=== PATIENT | female | born 1985 | race Caucasian/White ===

== ENCOUNTER 2020-03-21 10:42 | Outpatient (CLI) | payer OTHER, SELFPAY ==
[2020-03-21 12:16] LABS: Basophils Absolute Auto 0.1 K/mm3 (0.0-0.1); Basophils Percent Auto 0.4 % (0.2-1.2); Eosinophils Absolute Auto 0.2 K/mm3 (0-0.3); Eosinophils Percent Auto 1.6 % (0-4.4); Hematocrit 44.5 % (37.0-47.0); Hemoglobin 14.5 g/dL (12.0-15.0); Immature Granulocyte Absolute 0.04 K/mm3 (0.00-0.031); Immature Granulocyte Percent A 0.3 % (0-0.5); Lymphocytes Absolute Auto 4.03 K/mm3 (0.9-3.2); Lymphocytes Percent Auto 32.7 % (18.3-44.2); Mean Corpuscular HGB Conc 32.6 g/dl (32-36); Mean Corpuscular Volume 91.9 fl (80-100); Mean Platelet Volume 8.8 fl (7.4-10.4); Monocytes Absolute Auto 0.7 K/mm3 (0.1-0.6); Monocytes Percent Auto 5.5 % (2.6-8.5); Neutrophils Absolute Auto 7.3 K/mm3 (1.3-6.7); Neutrophils Percent Auto 59.5 % (45.5-73.1); Platelet Count Result 360 k/mm3 (150-375); Red Blood Count 4.84 M/mm3 (4.2-5.4); Red Cell Distribution Width 12.9 % (11.5-14.5); White Blood Count 12.3 K/mm3 (4.5-10.0)
[2020-03-21 12:50] LABS: Alanine Aminotransferase 21 U/L (4-35); Albumin Level 4.1 g/dL (3.5-5.1); Alkaline Phosphatase 129 U/L (38-126); Anion Gap 7 mmol/L (8-16); Aspartate Amino Transferase 23 U/L (14-36); Bilirubin,Total 0.4 mg/dL (0.2-1.3); Blood Urea Nitrogen 14 mg/dL (7-17); Calcium 9.2 mg/dL (8.4-10.2); Carbon Dioxide 30 mmol/L (22-30); Chloride 104 mmol/L (98-107); Cholesterol 158 mg/dL (0-200); Estimated Glomerular Filt Rate > 60; Glucose 100 mg/dL (65-105); HDL Direct 56 mg/dL; Potassium 4.6 mmol/L (3.4-5.0); Sodium 141 mmol/L (137-145); Triglycerides 169 mg/dL (<150)
[2020-03-21 12:59] LABS: Thyroid Stimulating Hormone 0.942 uIU/mL (0.465-4.680)
[2020-03-21 13:01] LABS: LDL Cholesterol Direct 87 mg/dL
[2020-03-21 13:27] LABS: Vitamin D 25 Hydroxy 37.2 ng/mL
== END 2020-03-21 10:43 | disposition home or self-care (01) ==
PROVIDERS: PCP Internal Medicine; Visit Provider Clinical Nurse Specialist
DX: Z13.228 Encounter for screening for other metabolic disorders (principal); Z13.220 Encounter for screening for lipoid disorders; E55.9 Vitamin D deficiency, unspecified; R23.2 Flushing
CPT/HCPCS: 36415; 80053; 80061; 82306; 84443; 85025

== ENCOUNTER 2020-06-01 09:25 | Outpatient (CLI) | payer OTHER, SELFPAY ==
--- NOTE | 2020-06-01 11:30 | NEURO_ITS ---
Impression: # Complains of nocturnal paresthesia of hands. # Bilateral moderate Carpal Tunnel Syndrome. # No ulnar neuropathy. # Normal needle/EMG exam. Nerve Conduction Studies Anti Sensory Summary Table Stim Site NR Peak (ms) P-T Amp (?V) Site1 Site2 Delta-P (ms) Dist (cm) Shawn (m/s) Left Median Anti Sensory (2-3nd Digit) Wrist 4.8 10.9 Wrist 2-3nd Digit 4.8 14.0 29 Wrist 6.5 3.9 Wrist 2-3nd Digit 4.8 14.0 29 Right Median Anti Sensory (2-3nd Digit) Wrist 4.7 68.1 Wrist 2-3nd Digit 4.7 14.0 30 Wrist 4.5 37.9 Wrist 2-3nd Digit 4.7 14.0 30 Left Radial Anti Sensory (Base 1st Digit) Wrist 2.3 19.6 Wrist Base 1st Digit 2.3 0.0 Right Radial Anti Sensory (Base 1st Digit) Wrist 2.2 21.3 Wrist Base 1st Digit 2.2 0.0 Left Ulnar Anti Sensory (5th Digit) Wrist 3.0 92.8 Wrist 5th Digit 3.0 14.0 47 Right Ulnar Anti Sensory (5th Digit) Wrist 2.4 87.8 Wrist 5th Digit 2.4 14.0 58 Motor Summary Table Stim Site NR Onset (ms) O-P Amp (mV) Site1 Site2 Delta-0 (ms) Dist (cm) Shawn (m/s) Left Median Motor (Abd Poll Brev) Wrist 5.3 2.5 Elbow Wrist 5.1 29.0 57 Elbow 10.4 2.3 Right Median Motor (Abd Poll Brev) Wrist 5.0 4.7 Elbow Wrist 4.5 26.0 58 Elbow 9.5 5.0 Left Ulnar Motor (Abd Dig Minimi) Wrist 2.7 7.9 A Elbow Wrist 5.2 31.0 60 A Elbow 7.9 6.8 Right Ulnar Motor (Abd Dig Minimi) Wrist 2.6 5.2 A Elbow Wrist 4.9 31.0 63 A Elbow 7.5 4.3 F Wave Studies NR F-Lat (ms) L-R F-Lat (ms) Left Median (Mrkrs) (Abd Poll Brev) 29.42 0.00 Right Median (Mrkrs) (Abd Poll Brev) 29.42 0.00 Left Ulnar (Mrkrs) (Abd Dig Min) 29.39 0.17 Right Ulnar (Mrkrs) (Abd Dig Min) 29.23 0.17 EMG Side Muscle Nerve Root Ins Act Fibs Amp Dur Recrt Comment Right 1stDorInt Ulnar C8-T1 Nml Nml Nml Nml Nml Right Ext Indicis Radial (Post Int) C7-8 Nml Nml Nml Nml Nml Right Ext Digitorum Radial (Post Int) C7-8 Nml Nml Nml Nml Nml Right BrachioRad Radial C5-6 Nml Nml Nml Nml Nml Right PronatorTeres Median C6-7 Nml Nml Nml Nml Nml Right Abd Poll Brev Median C8-T1 Nml Nml Nml Nml Nml Left 1stDorInt Ulnar C8-T1 Nml Nml Nml Nml Nml Left Ext Indicis Radial (Post Int) C7-8 Nml Nml Nml Nml Nml Left Ext Digitorum Radial (Post Int) C7-8 Nml Nml Nml Nml Nml Left BrachioRad Radial C5-6 Nml Nml Nml Nml Nml Left PronatorTeres Median C6-7 Nml Nml Nml Nml Nml Left Abd Poll Brev Median C8-T1 Nml Nml Nml Nml Nml MTDD
== END 2020-06-01 09:26 | disposition home or self-care (01) ==
PROVIDERS: PCP Internal Medicine; Visit Provider Clinical Nurse Specialist
DX: R20.2 Paresthesia of skin (principal); G56.03 Carpal tunnel syndrome, bilateral upper limbs
CPT/HCPCS: 95886; 95911

== ENCOUNTER 2020-06-24 17:38 | Outpatient (CLI) | payer OTHER, SELFPAY ==
[2020-06-24 17:50] LABS: Basophils Absolute Auto 0.1 K/mm3 (0.0-0.1); Basophils Percent Auto 0.4 % (0.2-1.2); Eosinophils Absolute Auto 0.3 K/mm3 (0-0.3); Eosinophils Percent Auto 2.2 % (0-4.4); Hematocrit 40.9 % (37.0-47.0); Hemoglobin 13.1 g/dL (12.0-15.0); Immature Granulocyte Absolute 0.03 K/mm3 (0.00-0.031); Immature Granulocyte Percent A 0.2 % (0-0.5); Lymphocytes Absolute Auto 4.73 K/mm3 (0.9-3.2); Lymphocytes Percent Auto 39.4 % (18.3-44.2); Mean Corpuscular Hemoglobin 29.9 pg (26-34); Mean Corpuscular Volume 93.4 fl (80-100); Mean Platelet Volume 8.6 fl (7.4-10.4); Monocytes Absolute Auto 0.9 K/mm3 (0.1-0.6); Monocytes Percent Auto 7.1 % (2.6-8.5); Neutrophils Absolute Auto 6.1 K/mm3 (1.3-6.7); Neutrophils Percent Auto 50.7 % (45.5-73.1); Platelet Count Result 329 k/mm3 (150-375); Red Blood Count 4.38 M/mm3 (4.2-5.4); Red Cell Distribution Width 13.7 % (11.5-14.5)
== END 2020-06-24 17:39 | disposition home or self-care (01) ==
LOC: ANHLAB 17:40
PROVIDERS: PCP Clinical Nurse Specialist; Visit Provider Clinical Nurse Specialist
DX: D72.829 Elevated white blood cell count, unspecified (principal)
CPT/HCPCS: 36415; 85025

== ENCOUNTER 2020-07-02 13:32 | Outpatient (CLI) | payer OTHER, SELFPAY ==
--- NOTE | ~2020-07-02 | MR_ITS ---
EXAMINATION: MR brain/brain stem wo/w con DATE: 07/02/2020 18:30 CDT INDICATION: Migraine headaches TECHNIQUE: Magnetic resonance imaging (MRI) of the brain and brainstem was performed without and with 20 cc MultiHance intravenous contrast. Sequences included sagittal and axial T1-weighted SE, axial d iffusion-weighted FS SE, axial T2*-weighted GRE, axial T2-weighted FLAIR Propeller, and axial T2-weig hted Propeller. Apparent diffusion coefficient (ADC) maps were created. COMPARISON: No prior studies for comparison. FINDINGS: The brain volume and ventricular system are within normal limits. The brain parenchymal si gnal intensity pattern and stone/white matter is normal and there is no evidence of hemorrhage, space occupying masses or infarctions. The flow signal voids of the major arterial structures about the [place] and within the jose r dural venous sinuses appear grossly unremarkable and patent. The seventh and eighth cranial nerve complexes are normal. The mid sagittal image demonstrates a normal craniovertebral junction and senia us callosum. The paranasal sinuses are grossly unremarkable. No abnormal contrast enhancement was appreciated. IMPRESSION: 1: No acute intracranial abnormality. Reviewed, dictated and finalized at location A.
[2020-07-02 14:43] LABS: Estimated Glomerular Filt Rate > 60
== END 2020-07-02 13:33 | disposition home or self-care (01) ==
PROVIDERS: PCP Internal Medicine; Visit Provider Clinical Nurse Specialist
DX: G43.909 Migraine, unspecified, not intractable, without status migrainosus (principal)
CPT/HCPCS: 70553; A9577

== ENCOUNTER 2020-10-10 11:06 | Outpatient (CLI) | payer OTHER, SELFPAY ==
[2020-10-10 11:56] LABS: Basophils Absolute Auto 0.1 K/mm3 (0.0-0.1); Basophils Percent Auto 0.5 % (0.2-1.2); Eosinophils Absolute Auto 0.2 K/mm3 (0-0.3); Eosinophils Percent Auto 1.7 % (0-4.4); Hematocrit 44.7 % (37.0-47.0); Hemoglobin 14.5 g/dL (12.0-15.0); Immature Granulocyte Absolute 0.04 K/mm3 (0.00-0.031); Immature Granulocyte Percent A 0.3 % (0-0.5); Lymphocytes Absolute Auto 4.08 K/mm3 (0.9-3.2); Lymphocytes Percent Auto 33.8 % (18.3-44.2); Mean Corpuscular HGB Conc 32.4 g/dl (32-36); Mean Corpuscular Hemoglobin 30.7 pg (26-34); Mean Corpuscular Volume 94.7 fl (80-100); Mean Platelet Volume 8.8 fl (7.4-10.4); Monocytes Absolute Auto 0.7 K/mm3 (0.1-0.6); Monocytes Percent Auto 5.7 % (2.6-8.5); Platelet Count Result 377 k/mm3 (150-375); Red Blood Count 4.72 M/mm3 (4.2-5.4); Red Cell Distribution Width 12.9 % (11.5-14.5); White Blood Count 12.1 K/mm3 (4.5-10.0)
[2020-10-10 15:15] LABS: Vitamin D 25 Hydroxy 42.1 ng/mL
== END 2020-10-10 11:07 | disposition home or self-care (01) ==
PROVIDERS: PCP Internal Medicine; Visit Provider Clinical Nurse Specialist
DX: D72.829 Elevated white blood cell count, unspecified (principal); E55.9 Vitamin D deficiency, unspecified
CPT/HCPCS: 36415; 82306; 85025

== ENCOUNTER 2020-10-10 11:12 | Outpatient (CLI) | payer OTHER, SELFPAY ==
[2020-10-10 12:48] LABS: HIV 1/2 Ab P24 Ag Result Negative (Negative)
[2020-10-10 16:15] LABS: Hepatitis B Surface Antigen Negative (Negative)
[2020-10-10 16:32] LABS: Hepatitis C Virus Antibody Negative (Negative)
== END 2020-10-10 11:13 | disposition home or self-care (01) ==
PROVIDERS: PCP Internal Medicine; Visit Provider Clinical Nurse Specialist
DX: T14.8XXA Other injury of unspecified body region, initial encounter (principal); W46.1XXA Contact with contaminated hypodermic needle, initial encounter
CPT/HCPCS: 36415; 86703; 86803; 87340; G0432

== ENCOUNTER 2021-01-16 10:27 | Outpatient (CLI) | payer OTHER, SELFPAY ==
[2021-01-16 14:36] LABS: Valproic Acid 17.9 ug/mL (50-120)
== END 2021-01-16 10:28 | disposition home or self-care (01) ==
PROVIDERS: Anesthesiology; PCP Internal Medicine; Visit Provider Plastic Surgery
DX: G43.909 Migraine, unspecified, not intractable, without status migrainosus (principal)
CPT/HCPCS: 36415; 80164

== ENCOUNTER 2021-01-18 02:15 | Day surgery (SDC) | payer OTHER, SELFPAY ==
[2021-01-11 15:21] VITALS: BMI 50.1
--- NOTE | 2021-01-11 15:31 | PC.NURSE ---
Report to the Outpatient Waiting Room, entrance under the green pavilion located off [facility], at 6:00 on date 01/18/21. OR Time: 7:30. - You and your visitor will be asked a series of questions to screen for COVID 19 for your protection. - A mask is required within the hospital. - Only one visitor is allowed at this time. Patient visitors will be guided where to wait when not with patient. Preoperative COVID Testing Requirements: No COVID Test needed if: (proof is required; if not received patient will have Rapid Test prior to entry) - Patient has received COVID Vaccine at least 14 days prior to procedure date or - Patient has positive COVID test result within last 90 days of surgery date. COVID Test needed if above criteria is not met If not COVID vaccinated a COVID test must be conducted within 72 hours of surgery and patient is asked to isolate self from time of testing until procedure. You will go to the [facility] for your COVID testing. The [facility] is located at the corner of [address] [facility]. You will only be called if COVID results are positive and your surgeon may reschedule your elective surgery date. Patients may have clear liquids (water, carbonated beverages, clear teas, apple juice) until 3 hours prior to surgery with a maximum of 20 ounces. - No food from midnight until time of surgery - Infants may have breast milk until 4 hours before surgery, formula 6 hours prior to surgery. - Children will be allowed to drink immediately following surgery. If applicable, please bring a bottle or sippy cup to assist with drinking. Juice, water, soda, and popsicles are readily available. For infants on formula, please bring formula the day of surgery. Pacifiers are allowed. Take the following medications with a SIP of water the morning of surgery: DIVALPROEX, DULOXETINE, GABAPENTIN, CYCLOBENZAPRINE, PROPRANOLOL Medications to discontinue per physician VITAMINS/SUPPLEMENTS Date to take last dose 3 DAYS PRE-OP Please no make-up, nail irish, hairspray, perfume, deodorant, or body powder the day of surgery. No jewelry (including any body piercings) or valuables the day of surgery, leave them at home. Please take a shower or bath the night before, or the morning of, surgery with an antibacterial soap. Wear comfortable, loose fitting clothing. Children are encouraged to wear pajamas. - Jewelry must be removed prior to entering the operating room. Rings and piercings that are not removed may be cut off. - The hospital will not accept responsibility for valuables. - Please leave all valuables, including medications, at home the day of surgery. If you are going home after surgery, a licensed flatbed driver must drive you home. - NO public transportation without another adult. - We recommend that an adult stay with you for 24 hours following discharge. - We also recommend that you do not drive, make important decision, drink alcoholic beverages, or take any drugs that were not prescribed by your health care provider for at least 24 hours after your discharge time. For Pediatric surgeries, we recommend two adults accompany the child home (only one inside the building at this time). Follow any additional instructions given to you from your surgeon. Telephone instructions given to VINCENT ZAPATA and asked if any additional questions and then verbalized understanding. Patient advised to call surgeon office or pre surgery nurse liaison [phone] if any additional questions.
[2021-01-18 06:14] VITALS: BMI 53.1
[2021-01-18 06:34] VITALS: BP 121/75; PULSE 90; RESP 20; TEMP 36.1; O2SAT 99
--- NOTE | 2021-01-18 06:35 | WPDANESEPPF ---
Anes - Initial Pre Proc Eval Procedure: Operation Date: 01/18/21 07:30 Proposed Procedures p Right Open Carpal Tunnel Release - Paco Lee MD Date/Time: 01/18/21 06:35 Surgeon: Paco Lee MD Pre Op Diagnosis: right carpal tunnel syndrome Patient Data Age: 35 Gender: F Height: 1.7 m Weight: 154 kg Last Vital Signs Temp 36.1 C L 01/18/21 06:34 Pulse 90 01/18/21 06:34 Resp 20 01/18/21 06:34 BP 121/75 01/18/21 06:34 Pulse Ox 99 01/18/21 06:34 Allergies Allergy/AdvReac Type Severity Reaction Status Date / Time citalopram Allergy Mild TWITCHING Verified 01/18/21 06:12 Home Medications Medication Instructions Recorded Confirmed Type norethindrone acetate 1 mg-ethinyl 1 tablet PO DAILY 02/17/20 01/18/21 History estradiol 20 mcg tablet omega-3 fatty acids 1,000 mg 1,000 mg PO DAILY 02/17/20 01/18/21 History capsule omeprazole 20 mg capsule,delayed 20 mg PO DAILY 02/17/20 01/18/21 History release duloxetine 30 mg capsule,delayed 30 mg PO DAILY #90 cap 05/19/20 01/18/21 Rx release duloxetine 60 mg capsule,delayed 60 mg PO DAILY #90 cap 05/19/20 01/18/21 Rx release ondansetron 4 mg disintegrating 4 mg PO Q6H PRN #30 tablet 08/23/20 01/11/21 Rx tablet atorvastatin 20 mg tablet 20 mg PO DAILY #90 tablet 10/12/20 01/18/21 Rx divalproex 250 mg tablet,delayed 250 mg PO Q12H 10/31/20 01/18/21 History release triamcinolone acetonide 0.1 % 1 applic TOPICAL BID #30 g 11/11/20 01/18/21 Rx topical cream gabapentin 800 mg tablet 800 mg PO BID #180 tablet 12/12/20 01/18/21 Rx cholecalciferol (vitamin D3) 50 mcg PO DAILY 01/11/21 01/18/21 History [Vitamin D3] propranolol 60 mg PO DAILY 01/11/21 01/18/21 History cyclobenzaprine 10 mg tablet 10 mg PO DAILY PRN #30 tablet 01/16/21 01/18/21 Rx Patient hx anesthesia problems: none Family hx anesthesia problems: none Results Review: All pre-operative results and documents have been reviewed as part of the pre-operative evaluation. [facility] Past Medical History Medical History Anxiety Broken toe Cholecystectomy planned 2018 Depression GERD (gastroesophageal reflux disease) Headache Surgical History Surgical History (Updated 01/18/21 @ 06:35 by Hai Manning MD) H/O lithotripsy 2017 History of cholecystectomy Family History Family History Mother Hypertension Father Heart disease Grandparent Hypertriglyceridemia Parkinson disease Hypertension Dementia Social History Social History Smoking status: Never smoker Alcohol intake: current Alcohol use details: 3 TIMES/YEAR Substance use: never Substance use type: does not use Living arrangements: with family Spiritual care concerns: No Anes - Eval Final PreProcedure Day of Procedure 01/18/21 06:35 Patient weight: super morbidly obese Heart: regular rate and rhythm Lungs: clear to auscultation Airway: Mallampati scale class II Neurological: alert and oriented Last oral intake: >/= 8 hours ASA classification: III Emergent: no Anesthetic plan: proceed Anesthesia type and monitoring: general GIVS and standard monitoring Results Review: All pre-operative results and documents have been reviewed as part of the pre-operative evaluation. Informed Consent: The patient's anesthetic plan and its attendant risks and benefits were discussed with the patient/family/POA. Questions were solicited and answers provided to the satisfaction of the patient/family/POA.
[2021-01-18] MEDS: LACTATED RINGERS 1,000 ML 30 ML IV CONT (06:45)
--- NOTE | 2021-01-18 06:45 | SUR.PREOP ---
PT UNABLE TO VOID. BETA HCG DRAWN
--- NOTE | 2021-01-18 07:12 | WPDHPUPDATE1 ---
History and Physical Update Update Date/Time: 01/18/21 07:12 History and Physical has been reviewed, including an updated exam of the patient. There are NO changes in the patient's condition. Risks, benefits, and alternatives have been discussed and questions answered. Patient agrees to proceed with procedure.
[2021-01-18 07:27] LABS: Beta HCG Quantitative < 2.39 mIU/ML
[2021-01-18] MEDS: LIDO 1%/EPINEPHRINE 1:100,000 50 ML VIAL 10 ML INFILTRATE (07:47)
[2021-01-18 08:05] VITALS: BP 125/74; PULSE 73; RESP 16; O2SAT 100
--- NOTE | 2021-01-18 08:09 | W.PM.PROC2 ---
Procedure Note - Detailed Date of Procedure 01/18/21 Pre-op Diagnosis right carpal tunnel syndrome Post-op Diagnosis same Procedure Performed Right open carpal tunnel release Surgeon Paco Lee MD Anesthesia MAC and local Indications Failed conservative treatment Description of Procedure The right carpal tunnel was marked on the patient's wrist in the holding area. The patient was taken to the operating room placed supine on the operating table. A time-out was held and confirmed. She was given IV sedation the extremity was prepped and draped in usual fashion. The site was remarked and locally infiltrated with 1% lidocaine with epinephrine. The extremity was elevated and the tourniquet inflated to 250 mmHg. Incision was made as marked and dissection was carried bluntly through the subcu tissue to the palmar aponeurosis. This and the carpal retinaculum were incised with a 15. Blade. Under 3 point retraction the ligament was divided distally and proximally to completely release it. There was no unusual anatomy. The skin was closed with interrupted 5 0 nylon her usual bandage was applied. She is discharged with instructions in wound care and follow-up and a prescription for hydrocodone 5/325 number 6 Tourniquet Time 5 Drains No Packing No Pathology none sent Complications No immediate complications Condition stable Disposition same day
[2021-01-18 08:35] VITALS: BP 114/73; PULSE 81; RESP 16
== END 2021-01-18 08:45 | disposition home or self-care (01) ==
PROVIDERS: Anesthesiology; PCP Internal Medicine; Visit Provider Plastic Surgery
PROC: (CPT 64721; principal; 2021-01-18 07:30)
DX: G56.01 Carpal tunnel syndrome, right upper limb (principal); F41.8 Other specified anxiety disorders; E66.01 Morbid (severe) obesity due to excess calories; Z68.43 Body mass index [BMI] 50.0-59.9, adult
CPT/HCPCS: 64721; 36415; 84702; A9270; J1100; J1885; J2250; J2405; J2704; J3010; J7120

== ENCOUNTER 2021-02-22 01:16 | Day surgery (SDC) | payer OTHER, SELFPAY ==
[2021-02-14 14:02] VITALS: BMI 53.1
--- NOTE | 2021-02-14 14:05 | PC.NURSE ---
Report to the Outpatient Waiting Room, entrance under the green pavilion located off [facility], at time 0600 on date 02/22/21. OR Time: 0730. - You and your visitor will be asked a series of questions to screen for COVID 19 for your protection. - A mask is required within the hospital. - Only one visitor is allowed at this time. Patient visitors will be guided where to wait when not with patient. Preoperative COVID Testing Requirements: No COVID Test needed if: (proof is required; if not received patient will have Rapid Test prior to entry) - Patient has received COVID Vaccine at least 14 days prior to procedure date or - Patient has positive COVID test result within last 90 days of surgery date. COVID Test needed if above criteria is not met If not COVID vaccinated a COVID test must be conducted within 72 hours of surgery and patient is asked to isolate self from time of testing until procedure. You will go to the [facility] for your COVID testing. The [facility] is located at the corner of [address] [facility]. You will only be called if COVID results are positive and your surgeon may reschedule your elective surgery date. Patients may have clear liquids (water, carbonated beverages, clear teas, apple juice) until 3 hours prior to surgery with a maximum of 20 ounces. - No food from midnight until time of surgery - Infants may have breast milk until 4 hours before surgery, infant formula 6 hours prior to surgery. - Children will be allowed to drink immediately following surgery. If applicable, please bring a bottle or sippy cup to assist with drinking. Juice, water, soda, and popsicles are readily available. For infants on formula, please bring formula the day of surgery. Pacifiers are allowed. Take the following medications with a SIP of water the morning of surgery: DIVALPROEX, DULOXETINE, GABAPENTIN, PROPRANOLOL, ZIPRASIDONE Medications to discontinue per physician: VITAMINS/SUPPLEMENTS Date to take last dose: 02/18/21 Please no make-up, nail turkish, hairspray, perfume, deodorant, or body powder the day of surgery. No jewelry (including any body piercings) or valuables the day of surgery, leave them at home. Please take a shower or bath the night before, or the morning of, surgery with an antibacterial soap. Wear comfortable, loose fitting clothing. Children are encouraged to wear pajamas. - Jewelry must be removed prior to entering the operating room. Rings and piercings that are not removed may be cut off. - The hospital will not accept responsibility for valuables. - Please leave all valuables, including medications, at home the day of surgery. If you are going home after surgery, a licensed wrecking car driver must drive you home. - NO public transportation without another adult. - We recommend that an adult stay with you for 24 hours following discharge. - We also recommend that you do not drive, make important decision, drink alcoholic beverages, or take any drugs that were not prescribed by your health care provider for at least 24 hours after your discharge time. For Pediatric surgeries, we recommend two adults accompany the child home (only one inside the building at this time). Follow any additional instructions given to you from your surgeon. Telephone instructions given to VINCENT AZPATA and asked if any additional questions and then verbalized understanding. Patient advised to call surgeon office or pre surgery nurse liaison [phone] if any additional questions.
[2021-02-22 06:15] VITALS: BP 122/85; PULSE 95; RESP 18; TEMP 35.7; O2SAT 99
[2021-02-22] MEDS: LACTATED RINGERS 1,000 ML 30 ML IV CONT (06:30)
--- NOTE | 2021-02-22 06:46 | WPDANESEPPF ---
Anes - Initial Pre Proc Eval Procedure: Operation Date: 02/22/21 07:30 Proposed Procedures p Left Open Carpal Tunnel Release - Paco Lee MD Date/Time: 02/22/21 06:46 Surgeon: Paco Lee MD Pre Op Diagnosis: left carpal tunnel syndrome Patient Data Age: 35 Gender: F Height: 1.7 m Weight: 154 kg Allergies Allergy/AdvReac Type Severity Reaction Status Date / Time citalopram Allergy Mild TWITCHING Verified 02/14/21 13:59 Home Medications Medication Instructions Recorded Confirmed Type norethindrone acetate 1 mg-ethinyl 1 tablet PO DAILY 02/17/20 02/14/21 History estradiol 20 mcg tablet omega-3 fatty acids 1,000 mg 1,000 mg PO DAILY 02/17/20 02/14/21 History capsule omeprazole 20 mg capsule,delayed 20 mg PO DAILY 02/17/20 02/14/21 History release duloxetine 30 mg capsule,delayed 30 mg PO DAILY #90 cap 05/19/20 02/14/21 Rx release duloxetine 60 mg capsule,delayed 60 mg PO DAILY #90 cap 05/19/20 02/14/21 Rx release ondansetron 4 mg disintegrating 4 mg PO Q6H PRN #30 tablet 08/23/20 02/14/21 Rx tablet atorvastatin 20 mg tablet 20 mg PO DAILY #90 tablet 10/12/20 02/14/21 Rx divalproex 250 mg tablet,delayed 250 mg PO Q12H 10/31/20 02/14/21 History release gabapentin 800 mg tablet 800 mg PO BID #180 tablet 12/12/20 02/14/21 Rx cholecalciferol (vitamin D3) 50 mcg PO DAILY 01/11/21 02/14/21 History [Vitamin D3] propranolol 60 mg PO DAILY 01/11/21 02/14/21 History ziprasidone HCl 80 mg PO DAILY 02/14/21 02/14/21 History cyclobenzaprine 10 mg tablet 10 mg PO DAILY PRN #30 tablet 02/21/21 Rx Patient hx anesthesia problems: none Family hx anesthesia problems: none Results Review: All pre-operative results and documents have been reviewed as part of the pre-operative evaluation. [facility] Past Medical History Medical History Anxiety Depression GERD (gastroesophageal reflux disease) Hyperlipidemia Migraines Surgical History Surgical History H/O lithotripsy 2017 History of cholecystectomy Family History Family History Mother Hypertension Father Heart disease Grandparent Hypertriglyceridemia Parkinson disease Hypertension Dementia Social History Social History Smoking status: Never smoker Alcohol intake: current Alcohol use details: 3 TIMES/YEAR Substance use: never Substance use type: does not use Living arrangements: with family Spiritual care concerns: No Anes - Eval Final PreProcedure Day of Procedure 02/22/21 06:46 Patient weight: super morbidly obese Heart: regular rate and rhythm Lungs: clear to auscultation Airway: Mallampati scale class II Neurological: alert and oriented Last oral intake: >/= 8 hours ASA classification: III Emergent: no Anesthetic plan: proceed Anesthesia type and monitoring: general GIVS and standard monitoring Results Review: All pre-operative results and documents have been reviewed as part of the pre-operative evaluation. Informed Consent: The patient's anesthetic plan and its attendant risks and benefits were discussed with the patient/family/POA. Questions were solicited and answers provided to the satisfaction of the patient/family/POA.
--- NOTE | 2021-02-22 07:10 | WPDHPUPDATE1 ---
History and Physical Update Update Date/Time: 02/22/21 07:10 History and Physical has been reviewed, including an updated exam of the patient. There are NO changes in the patient's condition. Risks, benefits, and alternatives have been discussed and questions answered. Patient agrees to proceed with procedure.
[2021-02-22 07:18] LABS: Beta HCG Quantitative < 2.39 mIU/ML
[2021-02-22] MEDS: LIDO 1%/EPINEPHRINE 1:100,000 50 ML VIAL 6 ML INFILTRATE (07:27)
[2021-02-22 08:02] VITALS: BP 138/71; PULSE 83; RESP 14; O2SAT 94
--- NOTE | 2021-02-22 08:07 | P.OP_ITS ---
Procedure Note - Detailed Date of Procedure 02/22/21 Pre-op Diagnosis left carpal tunnel syndrome Post-op Diagnosis same Procedure Performed Left open carpal tunnel release Surgeon Paco Lee MD Anesthesia MAC Description of Procedure The patient's left volar wrist was marked in the holding area. She was taken to the operating room where she was placed supine on the operating table. A time- out was held confirmed. The left upper extremity was prepped and draped in usual fashion she was given IV sedation. The incision site was marked again and locally infiltrated with 1% lidocaine with epinephrine. The tourniquet was inflated to 250 mmHg. The incision was made as marked. Dissection was carried bluntly through the subcutaneous tissue to the palmar fascia. This and carpal retinaculum were incised with a 15. Blade opening the canal. The knife was used to complete the release distally and proximally the no unusual anatomy was noted. The skin wound was closed with interrupted 5 0 nylon suture. The usual bandage was applied and the tourniquet was released. Patient is discharged home with instructions in wound care and follow-up and a prescription for hydrocodone 5/325 6. Estimated Blood Loss 0 Tourniquet Time 9 Drains No Packing No Pathology none sent Complications No immediate complications Condition stable Disposition same day
[2021-02-22 08:20] VITALS: BP 126/74; PULSE 74; RESP 14; O2SAT 96
[2021-02-22 08:40] VITALS: BP 118/74; PULSE 72; RESP 14
== END 2021-02-22 08:50 | disposition home or self-care (01) ==
PROVIDERS: Anesthesiology; PCP Internal Medicine; Visit Provider Plastic Surgery
PROC: (CPT 64721; principal; 2021-02-22 07:30)
DX: G56.02 Carpal tunnel syndrome, left upper limb (principal); E78.5 Hyperlipidemia, unspecified; K21.9 Gastro-esophageal reflux disease without esophagitis; F41.8 Other specified anxiety disorders; Z79.899 Other long term (current) drug therapy; E66.01 Morbid (severe) obesity due to excess calories; Z68.43 Body mass index [BMI] 50.0-59.9, adult
CPT/HCPCS: 64721; 36415; 84702; A9270; J2250; J2704; J3010; J7120